=== PATIENT | female | born 1980 | race Caucasian/White ===

== ENCOUNTER 2018-09-29 18:34 | Emergency (ER) | payer MEDICAID ==
[~2018-09-29] VITALS: Ht 152.4 cm; Wt 54.4 kg
[2018-09-29 18:40] VITALS: BP_SYST 116
[2018-09-29] MEDS ORDERED: KETOROLAC TROMETHAMINE 60 MG/2 ML VIAL IM ONE (20:15)
[2018-09-29 20:50] VITALS: BP_SYST 110
== END 2018-09-29 20:50 | disposition home or self-care (01) ==
LOC: SED 18:34
DX: S93.402A Sprain of unspecified ligament of left ankle, initial encounter (principal); V27.4XXA Motorcycle driver injured in collision with fixed or stationary object in traffic accident, initial encounter; Y93.55 Activity, bike riding; Y92.410 Unspecified street and highway as the place of occurrence of the external cause; Y99.8 Other external cause status
CPT/HCPCS: 73610; 96372; 99283; J1885